=== PATIENT | female | born 1935 | race Caucasian/White ===

== ENCOUNTER → 2019-04-20 | Outpatient (CLI) | payer MEDICARE, BC ==
--- NOTE | 2019-04-20 13:38 | RAD ---
EXAM: Head CT without contrast. HISTORY: Fall. TECHNIQUE: Computed tomographic images of the head were obtained without contrast. *One or more of the following individualized dose reduction techniques were utilized for this examination: 1. Automated exposure control. 2. Adjustment of the mA and/or kV according to patient size. 3. Use of iterative reconstruction technique. COMPARISON: None. FINDINGS: There is no acute or subacute extra-axial or intraparenchymal hemorrhage. There is no mass effect or midline shift. There is no hydrocephalus. There are areas of decreased attenuation within the cerebral white matter, nonspecific and likely related to chronic small vessel disease. There is mild cerebral volume loss. There are basal ganglia calcifications. There is slight soft tissue prominence overlying the inferior right parietal bone, likely due to a small contusion given a history of fall and reported pain in this location. No fracture is seen. IMPRESSION: 1. Suspected small right inferior parietal scalp subcutaneous tissue contusion. 2. No acute intracranial finding. 3. Bilateral cerebral white matter changes, likely due to chronic small vessel disease. 4. Mild age-appropriate cerebral volume loss. Electronically signed by: Francisca Nielson MD (04/20/2019 1:35 PM) [facility] [place]
== END | disposition home or self-care (01) ==
LOC: CT 13:06
PROVIDERS: ATTEND Nurse Practitioner Adult Health
DX: S06.0X0A Concussion without loss of consciousness, initial encounter (principal); R90.82 White matter disease, unspecified; W19.XXXA Unspecified fall, initial encounter; Y93.89 Activity, other specified; Y92.89 Other specified places as the place of occurrence of the external cause; Y99.8 Other external cause status
CPT/HCPCS: 70450

== ENCOUNTER 2020-06-30 09:39 | Emergency (ER) | payer MEDICARE, BC ==
[~2020-06-30] VITALS: Ht 157.5 cm; Wt 57.0 kg
[2020-06-30 09:39] VITALS: BP 148/59
--- NOTE | 2020-06-30 09:58 | PHYS DOC ---
General Adult EDM: Chief Complaint: MECHANICAL FALL HPI: HPI: 85-year-old female presents after a fall at home. She fell in her bedroom night before last around 9:30 PM. No one witnessed the fall. The patient cannot describe the incident to me. The patient did not seem to have any immediate ill effects. Her family member who was taking care of her set up with her and talked with her for a couple hours. The patient did not have any vomiting. She did sleep most of the day yesterday and states not feeling quite right. She has bruising on her anterior forehead. The patient has memory loss at baseline. She does not know her medications. Medicine list is pending. She does not seem to remember how or why she fell. She has had a few minor mechanical falls due to tripping lately. These did not cause injury. Patient denies fever or chills. She denies shortness of breath, chest pain, dizziness, or headache. Review of Systems: Review of Systems: Constitutional: Denies fever or chills Eyes: Denies change in visual acuity HENT: Denies nasal congestion or sore throat Respiratory: Denies cough or shortness of breath Cardiovascular: Denies chest pain or edema GI: Denies abdominal pain, nausea, vomiting, bloody stools or diarrhea : Denies dysuria Musculoskeletal: Denies back pain or joint pain Integument: Ecchymosis of the forehead Neurologic: Denies headache, focal weakness or sensory changes. Memory loss Endocrine: Denies polyuria or polydipsia Lymphatic: Denies swollen glands Psychiatric: Denies depression or anxiety Physical Exam: PE: Constitutional: Well developed, well nourished, no acute distress, non-toxic appearance. [] HENT: Normocephalic, atraumatic, bilateral external ears normal, oropharynx moist, no oral exudates, nose normal. [] Eyes: PERRLA, EOMI, conjunctiva normal, no discharge. [] Neck: Normal range of motion, no tenderness, supple, no stridor. [] Cardiovascular: Heart rate regular rhythm, no murmur [] Lungs & Thorax: Bilateral breath sounds clear to auscultation [] Abdomen: Bowel sounds normal, soft, no tenderness, no masses, no pulsatile masses. [] Skin: 4 cm x 4 cm area of ecchymosis of the left forehead. [] Back: No tenderness, no CVA tenderness. [] Extremities: No tenderness, no cyanosis, no clubbing, ROM intact, no edema. [] Neurologic: Alert and oriented X 3, normal motor function, normal sensory function, no focal deficits noted. Impaired memory. [] Psychologic: Affect normal, judgement normal, mood normal. [] EKG: EKG: Sinus rhythm, rate 61, leftward axis, left bundle branch block, no ST elevations or depressions. [] Radiology/Procedures: Radiology/Procedures: [] Impressions: XR CHEST 1V History: Reason: Fall, weakness / Spl. Instructions: / History: Comparison: None. Findings: No consolidation or pleural effusion. Normal heart size. No pneumothorax. Postoperative changes lower cervical spine. Impression: 1. No acute cardiopulmonary process. Electronically signed by: Addy Avalos DO (06/30/2020 10:17 AM) [facility] DICTATED AND SIGNED BY: ADDY AVALOS DO DATE: 06/30/20 1017 CC: TREVOR ANDRES DO; DRE MCKEON MD ~MTH0 0 CT scan of the head without contrast 06/30/2020 Clinical History: Fall. Patient struck forehead. Headaches and bruising. Technique: Unenhanced, contiguous, 5 mm axial sections were obtained through the head. One or more of the following individualized dose reduction techniques were utilized for this study: 1. Automated exposure control. 2. Adjustment of the mA and/or kV according to patient size. 3. Use of iterative reconstruction technique. Findings: There is generalized parenchymal atrophy. Areas of decreased atte nuation are seen within the periventricular and subcortical white matter of both cerebral hemispheres consistent with areas of small vessel ischemic disease. No acute parenchymal abnormality is seen. No extra-axial fluid collection is noted. No skull fracture is seen. Soft tissue swelling seen involving left frontal scalp. Impression: No acute intracranial abnormality is seen. CT scan of the cervical spine without contrast 06/30/2020 Clinical history: Fall. Neck injury. Neck pain. Technique: Unenhanced, contiguous, 0.625 mm axial sections were obtained through the cervical spine. 2 mm reconstructed axial and 2 mm coronal and sagittal reconstructed images were obtained. One or more of the following individualized dose reduction techniques were utilized for this study: 1. Automated exposure control. 2. Adjustment of the mA and/or kV according to patient size. 3. Use of iterative reconstruction technique. Findings: Sagittal and coronal reconstructed images demonstrate mild straightening of the normal cervical lordosis. The patient is post anterior discectomy and fusion using an anterior plate, bone screws and bone graft materi al at C6-7. Degenerative changes consisting of varying degrees of disc space narrowing, vertebral endplate sclerosis and mild to moderate anterior and posterior vertebral body osteophyte formation are seen throughout the cervical disc spaces. No fracture or subluxation of the cervical vertebrae is seen. Degenerative changes are seen involving the uncovertebral and facet joints throughout the cervical disc spaces. Atherosclerotic calcification is seen in the region of the carotid bifurcations. Impression: No fracture or subluxation of the cervical vertebra is identified. Electronically signed by: Barry Peterson MD (06/30/2020 10:25 AM) [id number] DICTATED AND SIGNED BY: BARRY PETERSON MD DATE: 06/30/20 1016 CC: TREVOR ANDRES DO; DRE MCKEON MD ~MTH0 0 Heart Score: C/O Chest Pain: No Risk Factors: Risk Factors: DM, Current or recent (<one month) smoker, HTN, HLP, family history of CAD, obesity. Risk Scores: Score 0 - 3: 2.5% MACE over next 6 weeks - Discharge Home Score 4 - 6: 20.3% MACE over next 6 weeks - Admit for Clinical Observation Score 7 - 10: 72.7% MACE over next 6 weeks - Early Invasive Strategies Course & Med Decision Making: Course & Med Decision Making Pertinent Labs and Imaging studies reviewed. (See chart for details) The patient's head and cervical spine CT is negative for acute findings. Her chest x-ray is negative for acute findings. Labs are remarkable for a glucose of 202. Urinalysis is pending. EKG is unremarkable. The patient's urinalysis suggest possible UTI. The patient would like to be discharged from the ER. I will treat her with oral Keflex for 5 days. She is stable for discharge at this time. [] Dragon Disclaimer: Draglorenza Disclaimer: This electronic medical record was generated, in whole or in part, using a voice recognition dictation system. Departure Departure: Impression: Primary Impression: UTI (urinary tract infection) Qualified Codes: N30.00 - Acute cystitis without hematuria Additional Impressions: Fall Qualified Codes: W19.XXXA - Unspecified fall, initial encounter Forehead contusion Dementia Disposition: HOME / SELF CARE / HOMELESS Condition: STABLE Referrals: DRE MCKEON MD (PCP) Patient Instructions: Fall Prevention and Home Safety, [id number], Urinary Tract Infection, [id number] Scripts Cephalexin (CEPHALEXIN) 500 Mg Tablet 1 TAB PO BID for uti for 5 Days, #10 TAB Prov: TREVOR ANDRES DO 06/30/20 TREVOR ANDRES DO Jun 30, 2020 09:58
--- NOTE | 2020-06-30 10:20 | RAD ---
XR CHEST 1V History: Reason: Fall, weakness / Spl. Instructions: / History: Comparison: None. Findings: No consolidation or pleural effusion. Normal heart size. No pneumothorax. Postoperative changes lower cervical spine. Impression: 1. No acute cardiopulmonary process. Electronically signed by: Addy Avalos DO (06/30/2020 10:17 AM) [facility]
--- NOTE | 2020-06-30 10:27 | RAD ---
CT scan of the head without contrast 06/30/2020 Clinical History: Fall. Patient struck forehead. Headaches and bruising. Technique: Unenhanced, contiguous, 5 mm axial sections were obtained through the head. One or more of the following individualized dose reduction techniques were utilized for this study: 1. Automated exposure control. 2. Adjustment of the mA and/or kV according to patient size. 3. Use of iterative reconstruction technique. Findings: There is generalized parenchymal atrophy. Areas of decreased attenuation are seen within th e periventricular and subcortical white matter of both cerebral hemispheres consistent with areas of small vessel ischemic disease. No acute parenchymal abnormality is seen. No extra-axial fluid collect ion is noted. No skull fracture is seen. Soft tissue swelling seen involving left frontal scalp. Impression: No acute intracranial abnormality is seen. CT scan of the cervical spine without contrast 06/30/2020 Clinical history: Fall. Neck injury. Neck pain. Technique: Unenhanced, contiguous, 0.625 mm axial sections were obtained through the cervical spine. 2 mm reconstructed axial and 2 mm coronal and sagittal reconstructed images were obtained. One or more of the following individualized dose reduction techniques were utilized for this study: 1. Automated exposure control. 2. Adjustment of the mA and/or kV according to patient size. 3. Use of iterative reconstruction technique. Findings: Sagittal and coronal reconstructed images demonstrate mild straightening of the normal cerv ical lordosis. The patient is post anterior discectomy and fusion using an anterior plate, bone screw s and bone graft material at C6-7. Degenerative changes consisting of varying degrees of disc space n arrowing, vertebral endplate sclerosis and mild to moderate anterior and posterior vertebral body ost eophyte formation are seen throughout the cervical disc spaces. No fracture or subluxation of the cervical vertebrae is seen. Degenerative changes are seen involving the uncovertebral and facet joints throughout the cervical disc spaces. Atherosclerotic calcificatio n is seen in the region of the carotid bifurcations. Impression: No fracture or subluxation of the cervical vertebra is identified. Electronically signed by: Barry Peterson MD (06/30/2020 10:25 AM) [id number]
[2020-06-30 10:55] LABS: BASO % 0 % (0-3); EOS # 0.1 x10^3/uL (0.0-0.7); EOS % 1 % (0-3); HEMATOCRIT 40.8 % (36.0-47.0); HEMOGLOBIN 13.7 g/dL (12.0-15.5); LYMPH % 26 % (24-48); MEAN CORPUSCULAR HEMOGLOBIN 31 pg (25-35); MEAN CORPUSCULAR HGB CONC 34 g/dL (31-37); MEAN CORPUSCULAR VOLUME 92 fL (79-100); MONO # 0.6 x10^3/uL (0.0-1.1); MONO % 7 % (0-9); NEUT % 65 % (31-73); PLATELET COUNT 230 x10^3/uL (140-400); RED BLOOD COUNT 4.43 x10^6/uL (3.50-5.40); RED CELL DISTRIBUTION WIDTH 13.4 % (11.5-14.5); WHITE BLOOD COUNT 7.7 x10^3/uL (4.0-11.0)
[2020-06-30 11:04] LABS: CALCIUM 9.8 mg/dL (8.5-10.1); GFR 52.7; POTASSIUM 3.9 mmol/L (3.5-5.1)
[2020-06-30 11:10] LABS: ALBUMIN 4.1 g/dL (3.4-5.0); ALBUMIN/GLOBULIN RATIO 1.2 (1.0-1.7); TOTAL BILIRUBIN 0.4 mg/dL (0.2-1.0); TOTAL PROTEIN 7.4 g/dL (6.4-8.2)
[2020-06-30] MEDS ORDERED: ASPI-630 PO (11:26)
[2020-06-30] MEDS ORDERED: AMLO1CAP54 PO (11:26)
[2020-06-30] MEDS ORDERED: LISI1TAB20 PO (11:27)
[2020-06-30] MEDS ORDERED: METO50TA29 PO (11:29)
[2020-06-30] MEDS ORDERED: ROSUVASTATIN CA40 MG PO (11:30)
[2020-06-30 11:36] LABS: BILIRUBIN,URINE NEG (NEG); CLARITY,URINE HAZY; COLOR,URINE YELLOW; GLUCOSE,URINE NEG (NEG); NITRITE,URINE NEG (NEG); UROBILINOGEN,URINE 0.2 mg/dL (0.2 mg/dL)
[2020-06-30 11:37] LABS: BACTERIA,URINE FEW /HPF (0-FEW); RBC,URINE OCC /HPF (0-2); SQUAMOUS EPITHELIAL CELL,UR MANY /LPF; WBC,URINE >40 /HPF (0-4)
[2020-06-30] MEDS ORDERED: CEPH500T PO (12:05)
--- NOTE | 2020-06-30 20:21 | EKG ---
[address] [address] Test Date: 2020-06-30 Test Time: 10:07:40 Pat Name: YOAV REAVES Department: Room: Gender: F [employer]: : [id number] Requested By: TREVOR ANDRES Order Number: [id number] Reading MD: Measurements Intervals [place] Rate: 61 P: 39 UT: 178 QRS: -24 QRSD: 136 T: 68 QT: 456 QTc: 461 Interpretive Statements SINUS RHYTHM LEFTWARD AXIS LEFT BUNDLE BRANCH BLOCK ABNORMAL ECG RI6.02 No previous ECG available for comparison
== END 2020-06-30 12:11 | disposition home or self-care (01) ==
LOC: ER 09:39
DX: S00.83XA Contusion of other part of head, initial encounter (principal); I44.7 Left bundle-branch block, unspecified; F03.90 Unspecified dementia, unspecified severity, without behavioral disturbance, psychotic disturbance, mood disturbance, and anxiety; N30.00 Acute cystitis without hematuria; W18.39XA Other fall on same level, initial encounter; Y93.89 Activity, other specified; Y92.098 Other place in other non-institutional residence as the place of occurrence of the external cause; Y99.8 Other external cause status
CPT/HCPCS: 36415; 70450; 71045; 72125; 80053; 81001; 84484; 85025; 87086; 93005; 99285-25

== ENCOUNTER → 2020-11-04 | Outpatient (CLI) | payer MEDICARE, BC ==
[~2020-11-04] MED LIST: AMLO1CAP54 PO; ASPI-630 PO; CEPH500T PO; IOHEXOL 240 MG/ML 50ML VIAL. ONE; IOHEXOL 300 MG/ML 75 ML VIAL. IV ONE; LISI1TAB20 PO; METO50TA29 PO; ROSUVASTATIN CA40 MG PO
[2020-11-04 13:44] LABS: CREATININE 1.1 mg/dL (0.6-1.0); GFR 47.2
--- NOTE | 2020-11-04 15:21 | RAD ---
EXAM: Abdomen and pelvis CT with intravenous contrast. HISTORY: Melena. TECHNIQUE: Computed tomographic images of the abdomen and pelvis were obtained following the administ ration of intravenous contrast. Multiplanar reformatting was performed. *One or more of the following individualized dose reduction techniques were utilized for this examina tion: 1. Automated exposure control. 2. Adjustment of the mA and/or kV according to patient size. 3. Use of iterative reconstruction technique. COMPARISON: None. FINDINGS: Evaluation of the lower thorax demonstrates a calcified granuloma within the right middle l obe. There is no infiltrate or pleural effusion. There is dense calcification of the mitral valve raheel ulus. There is coronary artery atherosclerosis is calcified plaque. There is biliary ductal dilatation. No obstructing lesion is seen at the ampulla. No suspicious hepat ic lesion is seen. There is a dilated pancreatic duct. There is a small proximal duodenal diverticulu m. The spleen is normal in size. No additional lesion is seen. There is no hydronephrosis. There are suspected bilateral extrarenal pelves. There is no suspicious renal lesion. There is no appendicitis. There is no bowel obstruction. There is distal colonic diverticulosis. Ther e is no convincing diverticulitis. The bladder is unremarkable. No adnexal mass is seen. There is hea vily calcified atherosclerotic plaque involving the aorta and main aortic branch vessels. No aneurysm is seen. There is no lymphadenopathy. There is instrumented posterior spinal fusion at L3-L4. There is degenerative change throughout the l ower thoracic and lumbar spine. There is thoracolumbar scoliosis and multilevel listhesis. IMPRESSION: 1. Distal colonic diverticulosis. There is no convincing diverticulitis. 2. Biliary and pancreatic ductal dilatation. This may be physiologic. MRCP may be useful if there is clinical concern for an occult obstructing etiology. Electronically signed by: Francisca Nielson MD (11/04/2020 3:19 PM) [id number]
== END ==
LOC: CT 12:46
PROVIDERS: ATTEND Family Medicine
DX: K57.30 Diverticulosis of large intestine without perforation or abscess without bleeding (principal); K86.89 Other specified diseases of pancreas; K83.8 Other specified diseases of biliary tract; J84.10 Pulmonary fibrosis, unspecified; I25.10 Atherosclerotic heart disease of native coronary artery without angina pectoris; I05.8 Other rheumatic mitral valve diseases; K57.10 Diverticulosis of small intestine without perforation or abscess without bleeding; I70.0 Atherosclerosis of aorta; M47.815 Spondylosis without myelopathy or radiculopathy, thoracolumbar region; M41.85 Other forms of scoliosis, thoracolumbar region; M43.26 Fusion of spine, lumbar region; K92.1 Melena
CPT/HCPCS: 36415; 74177; 82565; 84520; Q9967